=== PATIENT | male | born 1990 | race Caucasian/White ===

== ENCOUNTER 2025-01-05 12:15 | Outpatient (REF) | payer SELFPAY ==
[2025-01-05 13:34] LABS: MANUAL DIFF FLAG NO
--- OUTSIDE RECORDS SUMMARY | 2025-01-05 13:40 | XMS_ITS | Encounter Summary ---
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 Kevin Read MD [address] [place] [id number] Phone: tel: fax: [address] Phone: tel: fax: Referral ID Status Reason Start Date Expiration Date V isits Requested Visits Authorized [id number] Authorized 01/05/2025 01/05/2026 1 1 * Consultation (STAT) - Closed Specialty Diagnoses / Procedures Referred By Guillaume trevino Referred To Contact Otolaryngology Diagnoses Sudden left hearing loss Kevin Read MD [address] [place] [address] Phone: tel: fax: [facility] [address] [place] [address] Phone: tel: fax: Referral ID Status Reason Start Date Expiration Date V isits Requested Visits Authorized [id number] Closed Specialty Services Required 01/05/2025 01/05/2026 1 1 Reason for Visit * Reason Comments Earache Encounter Details Date Type Department Care Team (Late st Contact Info) Description 01/05/2025 11:20 AM EDT Office Visit [facility] [address] [place] [address] Kevin Read MD [address] [place] [address] Sudden left hearing loss (Primary Dx); Tinnitus of left ear; Earache on left Social History Tobacco Use Types Packs/Day Years Used Date Smoking Tobacco: Never Passive Smoke Exposure: Never Smokeless Tobacco: Never Tobacco Cessation:Counseling Given: Not Answered Alcohol Use Standard Drinks/Week Comments Never 0 (1 standard drink = 0.6 oz pur e alcohol) Sex and Gender Information Value Date Recorded Sex Assigned at Male 01/05/2025 10:33 AM EDT Legal Sex Male 10:31 AM EDT Gender Identity Male 01/05/2025 10:33 AM EDT Sexual Orientation Straight 01/05/2025 10 :33 AM EDT documented as of this encounter Last Filed Vital Signs Vital Sign Reading Time Taken Comments Blood Pressure 155/105 01/05/2025 10:51 AM EDT Pulse 91 01/05/2025 10:51 AM EDT Temperature 36.9 ??C (98.5 ??F) 01/05/2025 10:51 AM E DT Respiratory Rate 22 01/05/2025 10:51 AM EDT Oxygen Saturation 96% 01/05/2025 10:51 AM EDT Inhaled Oxygen Concentration - - Weight 117 kg (258 lb 6 oz) 01/05/2025 10:51 AM EDT Height 180.3 cm (5' 11 ) 01/05/2025 10:51 AM EDT Body Mass Index 36.04 01/05/2025 10:51 AM EDT documented in this encounter Progress Notes * Kevin Wheeler MD - 01/05/2025 11:20 AM EDT SUBJECTIVE Duane Sun is a 34 y.o. male who presents for Earache. Earache There is pain in the left ear. This is a new problem. The current episode started in the past 7 days. The problem occurs every few hours. The problem has been unchanged. The maximum temperature recorded prior to his arrival was 100.4 - 100.9 F. The fever has been present for Less than 1 day. The pain is at a severity of 2/10. The pain is mild. Associated symptoms include coughing, headaches, hearing loss and a sore throat. Pertinent negatives include no ear discharge, neck pain, rhinorrhea or vomiting. He has tried ear drops for the symptoms. The treatment provided no relief. There is no history of a chronic ear infection or hearing loss. Hearing Problem This is a new problem. The current episode started in the past 7 days. The problem has been rapidlyworsening. Associated symptoms include coughing, headaches and a sore throat. Pertinent negatives include no neck pain, vertigo, visual change, vomiting or weakness. He has tried nothing for the symptoms. The treatment provided no relief. Review of Systems HENT: Positive for ear pain, hearing loss and sore throat. Negative for ear discharge and rhinorrhea. Respiratory: Positive for cough. Gastrointestinal: Negative for vomiting. Musculoskeletal: Negative for neck pain. Neurological: Positive for headaches. Negative for vertigo and weakness. Allergies[1] OBJECTIVE Vitals: 01/05/25 1051 BP: (!) 155/105 BP Location: Left arm Patient Position: Sitting BP Cuff Size: Large adult Pulse: 91 Resp: 22 Temp: 98.5 ??F (36.9 ??C) TempSrc: Oral SpO2: 96% Weight: 258 lb 6 oz (117 kg) Height: 5' 11 (1.803 m) Physical Exam Vitals reviewed. Constitutional: Appearance: Normal appearance. HENT: Head: Normocephalic and atraumatic. Right Ear: Tympanic membrane, ear canal and external ear normal. Left Ear: Tympanic membrane, ear canal and external ear normal. No decreased hearing noted. No swelling or tenderness. No middle ear effusion. Tympanic membrane is not injected. Ears: Daniel exam findings: Lateralizes left. Nose: Nose normal. Mouth/Throat: Mouth: Mucous membranes are moist. Eyes: Conjunctiva/sclera: Conjunctivae normal. Cardiovascular: Rate and Rhythm: Normal rate and regular rhythm. Pulmonary: Effort: Pulmonary effort is normal. Breath sounds: Normal breath sounds. Skin: General: Skin is warm. Neurological: General: No focal deficit present. Mental Status: He is alert and oriented to person, place, and time. Mental status is at baseline. Cranial Nerves: No facial asymmetry. Sensory: Sensation is intact. Motor: Motor function is intact. Coordination: Coordination is intact. Gait: Gait is intact. Assessment/Plan Problem List Items Addressed This Visit Sudden left hearing loss - Primary 34 yr old male with c/o sudden onset of left sided hearing loss accompanied by tinnitus. Pt tells me it all started with what it seemed like a URI, mild headache, mild bilateral earache, mild fever, mild sore throat. NO vertigo ON today's exam both EACs, Timpanic membranes are normal. No cerumen, no redness, no discharge. He is unable to hear on the left. Only able to hear on the right. His daniel lateralized to the left. Which would point to conductive causes but given the fact that his ear exam is completely normal I still have a high level of suspicion for sensorineural loss. I contacted [facility] I spoke to [facility] PA who agreed to see patient urgently ( within a week ) discussed with her my initial diagnostic work up and my intent to start a Prednisone course. 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 Tinnitus of left ear Relevant Medications predniSONE (Deltasone) 20 MG tablet cetirizine (ZyrTEC) 10 MG tablet Other Relevant Orders Comprehensive Metabolic Panel 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 Earache on left Relevant Medications cetirizine (ZyrTEC) 10 MG tablet Other Relevant Orders POCT Rapid Influenza B CARMEN ID NOW (Completed) POCT Rapid Strep A CARMEN ID NOW (Completed) POCT Rapid Influenza A CARMEN ID NOW (Completed) POCT Rapid Covid-19 CARMEN ID NOW (Completed) Future Appointments Date Time Provider Department Center 01/12/2025 11:00 AM Kevin Wheeler MD MEDICINE [facility] 01/19/2025 9:30 AM Kevin Wheeler MD MEDICINE [facility] [1] No Known Allergies documented in this encounter Miscellaneous Notes * Assessment & Plan Note - Kevin Wheeler MD - 01/05/2025 12:13 PM EDT Associated Problem(s): Sudden left hearing loss 34 yr old male with c/o sudden onset of left sided hearing loss accompanied by tinnitus. Pt tells me it all started with what it seemed like a URI, mild headache, mild bilateral earache, mild fever, mild sore throat. NO vertigo ON today's exam both EACs, Timpanic membranes are normal. No cerumen, no redness, no discharge. He is unable to hear on the left. Only able to hear on the right. His daniel lateralized to the left. Which would point to conductive causes but given the fact that his ear exam is completely normal I still have a high level of suspicion for sensorineural loss. I contacted [facility] I spoke to mynor PARISI who agreed to see patient urgently ( within a week ) discussed with her my initial diagnostic work up and my intent to start a Prednisone course. I have given patient a follow up with me in 1 week just to check up on him and within 2 weeks for aNP appointment documented in this encounter Plan of Treatment Upcoming Encounters Date Type Department Care Team (Late st Contact Info) Description 01/12/2025 11:00 AM EDT Office Visit [facility] MED[facility] [address] [place] [phone] Kevin Read MD [address] [place] [address] 01/19/2025 9:30 AM EDT Office Visit [facility] [address], [place] [phone] Kevin Read MD [address] [place] [address] Scheduled Orders Name Type Priority Associated Diagnoses Orde r Schedule CBC auto differential Lab Routine Sudden left hearing loss Expected: 01/05/2025 (Approximate), Expires: 01/05/2026 Sed Rate by Modified Westergren Lab Routine Sudden left hearing loss Expected: 01/05/2025, Expires: 01/05/2026 Lyme Disease Ab with Reflex to Blot (IgG, IgM) Lab Routine Sudden left hearing loss Expected: 01/05/2025, Expires: 01/05/2026 RICHARD Screen,IFA, with Reflex to Titer and Pattern Lab Routine Sudden left hearing loss Expected: 01/05/2025 (Approximate), Expires: 01/05/2026 Syphilis Screen Lab Routine Sudden left hearing loss Expected: 01/05/2025 (Approximate), Expires: 01/05/2026 Comprehensive Metabolic Panel Lab Routine Sudden left hearing loss Tinnitus of left ear Ordered: 01/05/2025 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 Imaging Routine Sudden left hearing loss Tinnitus of left ear Ordered: 01/05/2025 Scheduled Referrals Name Type Priority Associated Diagnoses Orde r Schedule Referral to ENT Outpatient Referral STAT Sudden left hearing loss Expected: 01/05/2025 (Approximate), Expires: 01/05/2026 documented as of this encounter Procedures Procedure Name Priority Date/Time Associated Diagnosis Comments POC CARMEN ID NOW STREP A Routine 01/05/2025 11:52 AM EDT Earache on left POCT COVID-19 AG CARMEN ID NOW Routine 01/05/2025 11:52 AM EDT Earache on left POCT INFLUENZA B (ID NOW RAPID MOLECULAR) Routine 01/05/2025 11:51 AM EDT Earache on left POCT INFLUENZA A (ID NOW RAPID MOLECULAR) Routine 01/05/2025 11:51 AM EDT Earache on left documented in this encounter Results * POCT Rapid Covid-19 CARMEN ID NOW (01/05/2025 11:52 AM EDT) Coronavirus Antigen PCR Negative Negative, Indeterminate, None Detected, Invalid, Specimen unsatisfactory for evaluation, Weakly Positive, 2+ QC Media Lot # [id number] Lot# Expiration Date Swab 01/05/2025 11:5 2 AM EDT us Kevin Wheeler MD POINT OF CARE TEST EN TER/EDIT ORDERABLES Final Result * POCT Rapid Strep A CARMEN ID NOW (01/05/2025 11:52 AM EDT) Rapid Strep A Screen Negative Negative, None Detected QC Media Lot # [id number] Lot# Expiration Date Swab 01/05/2025 11:5 2 AM EDT Kevin Wheeler MD POINT OF CARE TEST EN TER/EDIT ORDERABLES Final Result * POCT Rapid Influenza A CARMEN ID NOW (01/05/2025 11:51 AM EDT) Influenza A Negative Negative, Indeterminate [facility] QC Media Lot # [id number] [facility] Lot# Expiration Date [facility] Swab 01/05/2025 11:5 1 AM EDT Kevin Wheeler MD POINT OF CARE TEST EN TER/EDIT ORDERABLES Final Result [facility] [address] [place] [phone] * POCT Rapid Influenza B CARMEN ID NOW (01/05/2025 11:51 AM EDT) Influenza B Negative Negative, Indeterminate [facility] QC Media Lot # [id number] [facility] Lot# Expiration Date [facility] Swab 01/05/2025 11:5 1 AM EDT us Kevin Wheeler MD POINT OF CARE TEST EN TER/EDIT ORDERABLES Final Result [facility] [address] [place], [place] [phone] documented in this encounter Visit Diagnoses Diagnosis Sudden left hearing loss- Primary Unspecified sudden hearing loss Tinnitus of left ear Earache on left documented in this encounter
[2025-01-05 13:57] LABS: Basophils Absolute Auto 0.1 X10*3/uL (0.0-0.2); Eosinophils Absolute Auto 0.6 X10*3/uL (0.0-0.4); Eosinophils Percent Auto 6.7 % (0-4); Hematocrit 51.1 % (42.0-52.0); Hemoglobin 17.7 g/dl (14.0-18.0); Imm Gran Abs Auto 0.03 X10*3/uL (0.00-0.03); Imm Gran Pct Auto 0.3 % (0.0-0.4); Lymphocytes Absolute Auto 1.8 X10*3/uL (1.2-4.9); Mean Corpuscular HGB Conc 34.6 g/dl (31.0-36.0); Mean Corpuscular Hemoglobin 32.7 pg (27.0-33.0); Mean Corpuscular Volume 94.3 fL (80.0-98.0); Monocytes Absolute Auto 0.6 X10*3/uL (0.1-1.2); Monocytes Percent Auto 7.2 % (2-11); Neutrophils Absolute Auto 5.6 x10*3/uL (2.0-8.3); Neutrophils Percent Auto 63.8 % (45-73); Platelet Count 271 X10*3/uL (160-400); Red Blood Count 5.42 X10*6/uL (4.60-5.80); Red Cell Distribution Width 11.4 % (11.0-16.0); White Blood Count 8.8 X10*3/uL (4.8-10.8)
[2025-01-05 14:38] LABS: Erythrocyte Sedimentation Rate 5 MM/HR (0-15)
[2025-01-05 17:39] LABS: Alanine Aminotransferase 41 U/L (0-40); Albumin Level 4.9 g/dL (3.5-5.0); Alkaline Phosphatase 64 U/L (39-117); Anion Gap 13 (12-20); Aspartate Amino Transferase 25 U/L (5-37); Bilirubin Total 0.8 mg/dL (0.0-1.0); Blood Urea Nitrogen 11 mg/dL (9-16); Calcium 9.6 mg/dL (8.4-10.2); Carbon Dioxide 27 mmol/L (22-29); Chloride 107 mmol/L (96-108); Estimated Glomerular Filt Rate > 60; Glucose Random 86 mg/dL (60-115); Potassium 3.9 mmol/L (3.3-5.1); Sodium 143 mmol/L (135-145); Total Protein 7.4 g/dL (6.5-8.0)
[2025-01-06 05:53] LABS: Lyme Abs Screen <0.90 index
[2025-01-07 04:11] LABS: Syphilis Screen Nonreactive (Nonreactive)
[2025-01-07 15:14] LABS: Anti Nuclear Antibody Screen NEGATIVE (NEGATIVE)
== END 2025-01-05 12:16 | disposition home or self-care (01) ==
LOC: HO.HHCL 12:15
PROVIDERS: Visit Provider Internal Medicine
DX: H91.22 Sudden idiopathic hearing loss, left ear (principal); H93.12 Tinnitus, left ear
CPT/HCPCS: 36415; 80053; 85025; 85652; 86038; 86617; 86618; 86780